=== PATIENT | female | born 1980 | race Caucasian/White ===

== ENCOUNTER 2019-02-14 12:46 | Emergency (ER) | payer OTHER ==
[2019-02-14 12:56] VITALS: BP 104/64
--- NOTE | 2019-02-14 12:58 | UC ---
Throat Pain/Nasal Angel HPI - HPI Summary HPI Summary: 38 yo female presents accompanied by her toddler son. Mom says that she developed a sore throat today. Son is also being seen and tested positive for strep. Pt is concerned that she may have strep. Has not taken anything OTC for her symptoms. Denies fever, sinus symptoms, or cough. - History of Current Complaint Stated Complaint: THROAT Time Seen by Provider: 02/14/19 12:47 Hx Obtained From: Patient Hx Last Menstrual Period: 01/12/19 Onset/Duration: Sudden Onset Severity: Mild Pain Intensity: 2 Pain Scale Used: 0-10 Numeric - Allergies/Home Medications Allergies/Adverse Reactions: Allergies Allergy/AdvReac Type Severity Reaction Status Date / Time avacado Allergy itchy Uncoded 02/14/19 13:11 watery eyes hazelnuts Allergy See Comment Uncoded 09/23/16 15:30 raw apples Allergy See Comment Uncoded 09/23/16 15:30 watermelon flavor Allergy Headache Uncoded 02/14/19 13:11 PMH/Surg Hx/FS Hx/Imm Hx - Additional Past Medical History Additional PMH: None - Surgical History Surgical History: Yes Surgery Procedure, Year, and Place: lasik surgery - Family History Known Family History: Positive: None - reviewed & noncontributory - Social History Occupation: Employed Full-time Lives: With Family Alcohol Use: None Substance Use Type: None Smoking Status (MU): Never Smoked Tobacco Review of Systems All Other Systems Reviewed And Are Negative: Yes Constitutional: Positive: Negative Skin: Positive: Negative Eyes: Positive: Negative ENT: Positive: Sore Throat Respiratory: Positive: Negative Cardiovascular: Positive: Negative Neurological: Positive: Negative Psychological: Positive: Negative Physical Exam - Summary Physical Exam Summary: GENERAL: NAD. WDWN. No pain distress. SKIN: No rashes, sores, lesions, or open wounds. HEENT: Head: AT/NC Eyes: EOM intact. Conjunctiva clear without inflammation or discharge. Ears: Hearing grossly normal. TMs intact, no bulging, erythema, or edema. Nose: Nasal mucosa pink and moist. NTTP maxillary and frontal sinus. Throat: Posterior oropharynx without exudates, erythema, or tonsillar enlargement. Uvula midline. NECK: Supple. Nontender. No lymphadenopathy. CHEST: CTAB. No r/r/w. No accessory muscle use. Breathing comfortably and in no distress. CV: RRR. Without m/r/g. Pulses intact. Cap refill <2seconds NEURO: Alert. PSYCH: Age appropriate behavior. Triage Information Reviewed: Yes Vital Signs: Initial Vital Signs Temp 99.1 F 02/14/19 12:53 Pulse 61 02/14/19 12:53 Resp 16 02/14/19 12:53 BP 104/64 02/14/19 12:53 Pulse Ox 100 02/14/19 12:53 Laboratory Tests 02/14/19 12:51 Group A Strep Rapid Negative Vital Signs Reviewed: Yes Throat Pain/Nasal Course/Dx - Course Course Of Treatment: POC strep negative. Suspect pharyngitis - advised to try conservative OTC treatment and if symptoms persist to be rechecked - Differential Dx/Diagnosis Provider Diagnosis: Pharyngitis Discharge - Sign-Out/Discharge Documenting (check all that apply): Patient Departure All imaging exams completed and their final reports reviewed: No Studies - Discharge Plan Condition: Stable Disposition: HOME Patient Education Materials: Pharyngitis (ED) Referrals: Bobo Sam MD [Primary Care Provider] - Additional Instructions: If you develop a fever, shortness of breath, chest pain, new or worsening symptoms - please call your PCP or go to the ED. Your strep test today was negative. Monitor your symptoms and try tea with honey for discomfort. IF your symptoms do not improve - please be rechecked. - Billing Disposition and Condition Condition: STABLE Disposition: Home - Attestation Statements Provider Attestation: I was available for consult. This patient was seen by the MIRYAM. The patient was not presented to , seen by or examined by ct -Maria Alejandra Keane MD
== END 2019-02-14 13:11 | disposition home or self-care (01) ==
LOC: UCEAST 12:46
DX: J02.9 Acute pharyngitis, unspecified (principal); Z91.018 Allergy to other foods
CPT/HCPCS: 87651; 99211; G0463

== ENCOUNTER 2019-04-24 13:55 | Emergency (ER) | payer OTHER ==
[2019-04-24 14:04] VITALS: BP 118/58
[2019-04-24] MEDS ORDERED: Ibuprofen TAB* 600 MG PO ONE (14:08)
--- NOTE | 2019-04-24 14:23 | UC ---
Lower Extremity/Ankle HPI - HPI Summary HPI Summary: was sailing on boat today, while moving to other side of boat she somehow slid, scraped L knee and injured L great toe. painful to walk on toe, has had no treatment thus far - History of Current Complaint Chief Complaint: UCLowerExtremity Stated Complaint: TOE INJURY Time Seen by Provider: 04/24/19 14:13 Hx Obtained From: Patient Hx Last Menstrual Period: 04/02/19 ?: No Onset/Duration: Sudden Onset Severity Initially: Moderate Severity Currently: Moderate Pain Intensity: 4 Aggravating Factor(s): Ambulation Alleviating Factor(s): Rest, Elevation Able to Bear Weight: Yes - with pain - Allergies/Home Medications Allergies/Adverse Reactions: Allergies Allergy/AdvReac Type Severity Reaction Status Date / Time avacado Allergy itchy Uncoded 04/24/19 14:04 watery eyes hazelnuts Allergy See Comment Uncoded 04/24/19 14:04 raw apples Allergy See Comment Uncoded 04/24/19 14:04 watermelon flavor Allergy Headache Uncoded 04/24/19 14:04 Home Medications: Home Medications L.acidoph,Paracasei, B.lactis [Probiotic] 1 tab PO DAILY 04/24/19 [History Confirmed 04/24/19] Loratadine [Claritin] 10 mg PO DAILY 04/24/19 [History Confirmed 04/24/19] PMH/Surg Hx/FS Hx/Imm Hx Previously Healthy: Yes - Surgical History Surgical History: Yes Surgery Procedure, Year, and Place: lasik surgery - Family History Known Family History: Positive: None - reviewed & noncontributory - Social History Occupation: Employed Full-time Lives: With Family Alcohol Use: Weekly Substance Use Type: None Smoking Status (MU): Never Smoked Tobacco - Immunization History Hx Tetanus, Diphtheria Vaccination: Yes Vaccination Up to Date: Yes Review of Systems All Other Systems Reviewed And Are Negative: Yes Constitutional: Positive: Negative Respiratory: Positive: Negative Cardiovascular: Positive: Negative Musculoskeletal: Positive: Other: - left great toe pain Neurological: Positive: Negative Psychological: Positive: Negative Is Patient Immunocompromised?: No Physical Exam Triage Information Reviewed: Yes Appearance: Well-Appearing, No Pain Distress, Well-Nourished Vital Signs: Initial Vital Signs Temp 99.1 F 04/24/19 14:00 Pulse 74 04/24/19 14:00 Resp 16 04/24/19 14:00 BP 118/58 04/24/19 14:00 Pulse Ox 100 04/24/19 14:00 Vital Signs Reviewed: Yes Respiratory Exam: Normal Cardiovascular Exam: Normal Musculoskeletal: Positive: ROM Limited @ - L great toe, Other: - distal L great toe tender, no gross deformity, no ecchymosis Neurological Exam: Normal Psychological Exam: Normal Skin: Positive: Other - superficial abrasion L knee- no bleeding Diagnostics - Radiology No standard instances Radiology Interpretation Completed By: Radiologist - Negative for fracture or dislocation. Lower Extremity Course/Dx - Differential Dx/Diagnosis Differential Diagnosis/HQI/PQRI: Contusion, Fracture (Closed), Sprain Provider Diagnosis: Strain of toe Discharge - Sign-Out/Discharge Documenting (check all that apply): Patient Departure All imaging exams completed and their final reports reviewed: Yes - Discharge Plan Condition: Good Disposition: HOME Patient Education Materials: Muscle Strain (ED) Referrals: No Primary Care Phys,NOPCP [Primary Care Provider] - Stevo Birmingham MD [Medical Doctor] - 3 Days (if no better) Additional Instructions: ice and elevate toe use post-op shoe for 1 week ibuprofen 600mg every 6 hours as needed for pain follow-up with orthopedic provider if no improvement 3-5 days - Billing Disposition and Condition Condition: GOOD Disposition: Home - Attestation Statements Provider Attestation: I was available for consult. This patient was seen by the MIRY[facility]. The patient was not presented to, seen by, or examined by me. -Gee
== END 2019-04-24 15:05 | disposition home or self-care (01) ==
LOC: UCEAST 13:55
DX: S93.502A Unspecified sprain of left great toe, initial encounter (principal); X58.XXXA Exposure to other specified factors, initial encounter; Y92.814 Boat as the place of occurrence of the external cause
CPT/HCPCS: 99212; A9270-GY; G0463

== ENCOUNTER 2019-06-04 13:50 | Emergency (ER) | payer OTHER ==
--- OUTSIDE RECORDS SUMMARY | 2019-06-04 14:23 | XMS REPORT | Continuity of Care Document ---
:1980 External Reference #:[id number] Author Name Venkat Will CNM Address [address] [place] [address] Care Team Providers Name Role Phone Shelby Rivera MD Primary Care Physician Unavailable Payers Date Identification Numbers Payment Provider Subscriber Policy Number: [id number] [employer] Ppo Joshua Menjivar PayID: [id number] [address] [place] [address] Problems Active Problems Provider Date IUD contraception Venkat Will CNM Onset: 05/12/2019 Family History Date Family Member(s) Observation Comments Father Diabetes Father Bipolar Disorder Father Cancer, Thyroid Father Gout Father Asthma Father Obesity Mother Hypertension Mother Hypercholesterolemia Mother Osteoporosis Mother Breast Cancer dx at age 65 Children 1 First Son A&W Siblings 2 First Brother Asthma First Sister Asthma Paternal Grandfather due to Unknown Causes () Paternal Grandmother due to MT () Maternal Grandfather due to Unknown Causes () Maternal Grandmother due to Stroke () Social History Type Date Description Comments Sex Unknown Education Highest Level Completed, Master's Degree Marital Status Lives With Spouse Lives With Son 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[employer] Cigarette Use Does Not Smoke Cigarettes ETOH Use Occasionally consumes alcohol Recreational Drug Use Denies Drug Use Tobacco Use Start: Unknown Patient has never smoked Smoking Status Reviewed: 05/12/19 Patient has never smoked Exercise Type/Frequency Exercises sporadically Seat Belt/Car Seat Always uses seat belt Currently Active Patient is currently sexually active Contraceptive Methods Current methods include copper T IUD STD's No STD History Allergies, Adverse Reactions, Alerts Active Allergies Reaction Severity Comments Date No Known Allergies 02/19/2016 Medications Active Medications SIG Qnty Indications Ordering Provider Date Paragard Intrauterine placed 05/12/2019 Venkat Will CNM 05/12/2019 Copper Contraceptive T380a T380a IUD Advil Unknown Multivitamin Adult Unknown Claritin Unknown History Medications No Active Medications Unknown 03/06/2016 - 09/03/2016 Medications Administered in Office Medication SIG Qnty Indications Ordering Provider Date No PT Tbco SCRN RNG DAY Johnson 04/20/2019 Injection PT SCRN Tbco Id as Non User DAY Johnson 04/20/2019 Injection Vital Signs Date Vital Result Comment 05/12/2019 2:16pm BP Systolic 104 mmHg BP Diastolic 62 mmHg Height 67 inches 5'7" Weight 133.00 lb BMI (Body Mass Index) 20.8 kg/m2 Last Menstrual Period [id number] 2 Parity 1 04/20/2019 7:56am BP Systolic 104 mmHg BP Diastolic 56 mmHg Height 67 inches 5'7" Weight 133.00 lb BMI (Body Mass Index) 20.8 kg/m2 Last Menstrual Period [id number] 2 Parity 1 10/01/2016 9:06am BP Systolic 102 mmHg BP Diastolic 60 mmHg Height 67 inches 5'7" Weight 134.00 lb BMI (Body Mass Index) 21.0 kg/m2 Last Menstrual Period [id number] 2 Parity 1 09/03/2016 2:37pm BP Systolic 112 mmHg BP Diastolic 66 mmHg Height 67 inches 5'7" Weight 133.00 lb BMI (Body Mass Index) 20.8 kg/m2 Last Menstrual Period [id number] 2 Parity 1 03/06/2016 2:14pm BP Systolic 110 mmHg BP Diastolic 68 mmHg Height 67 inches 5'7" Weight 132.00 lb BMI (Body Mass Index) 20.7 kg/m2 Last Menstrual Period [id number] 2 Parity 1 02/19/2016 12:00am BP Systolic 108 mmHg BP Diastolic 61 mmHg Body Temperature 98.3 F Heart Rate 67 /min Respiratory Rate 16 /min Height 67 inches Weight 130.00 lb Results Test Date Facility Test Result H/L Range Note Laboratory test 04/20/2019 [facility] Cytology SEE RESULT [address] [place] [address] BELOW [phone] Laboratory test 03/06/2016 [facility] HCG 0.95 mIU/mL N [address] [place] [address] [phone] Laboratory 02/19/2016 N2N/CCD Import Absolute 0 10^3/ul 0-0.2 Studies Basophils (auto) Absolute Eosinophils (auto) 0.1 10^3/ul 0-0.6 Absolute Lymphocytes (auto) 2.3 10^3/ul 1.0-4.8 Absolute Monocytes (auto) 0.4 10^3/ul 0-0.8 Absolute Neutrophils (auto) 3.6 10^3/ul 1.5-7.7 Alanine Aminotransferase (Alt/SGPT) 9 U/L 7-52 Albumin 4.0 g/dL 3.2-5.2 Albumin/Globulin Ratio 1.5 1-3 Alkaline Phosphatase 29 U/L Low 34-104 Anion Gap 6 mmol/L 2-11 Aspartate Amino Transf (Ast/Sgot) 14 U/L 13-39 BUN/Creatinine Ratio 17.9 8-20 Basophils (%) (Auto) 0.5 % 0-2 Beta HCG, Quantitative 83.38 mIU/mL Blood Urea Nitrogen 15 mg/dL 6-24 Calcium Level 8.8 mg/dL 8.6-10.3 Carbon Dioxide Level 27 mmol/L 22-32 Chloride Level 104 mmol/L 101-111 Creatinine 0.84 mg/dL 0.51-0.95 Eosinophils (%) (Auto) 1.5 % 0-6 Estimated GFR () 99.2 Estimated GFR (Non- 77.2 Globulin 2.7 g/dL 2-4 Glucose Level 109 mg/dL High 70-100 Hematocrit 38 % 35-47 Hemoglobin 12.7 g/dL 12.0-16.0 International Ratio (Anticoag Ther) 1.05 0.89-1.11 Lymphocytes (%) (Auto) 35.2 % 25-47 Mean Corpuscular Hemoglobin 30 pg 27-31 Mean Corpuscular Hemoglobin Concent 33 g/dL 31-36 Mean Corpuscular Volume 91 fL 80-97 Mean Platelet Volume 8 um3 7.4-10.4 Monocytes (%) (Auto) 7.0 % 1-9 Neutrophils (%) (Auto) 55.8 % 38-83 Nucleated RBC Absolute Count (auto) 0 10^3/ul Nucleated Red Blood Cells % 0 Platelet Count 278 10^3/ul 150-450 Potassium Level 3.2 mmol/L Low 3.5-5.0 Red Blood Count 4.22 10^6/ul 4.0-5.4 Red Cell Distribution Width 14 % 10.5-15 Sodium Level 137 mmol/L 133-145 Total Bilirubin 0.30 mg/dL 0.2-1.0 Total Protein 6.7 g/dL 6.4-8.9 White Blood Count 6.4 10^3/ul 3.5-10.8 Laboratory Studies 02/19/2016 N2N/CCD Import Urine Specific 1.008 Low 1.010-1.030 [place] Urine pH 6.0 5-9 1 SEE RESULT BELOW Name: JOSHUA MENJIVAR : [address]: Erin Coleman Acct: [id number] Unit: [id number] AGE: 38 Location: [facility] Re04/20/19 SEX: F Status: REG REF SPEC: [id number] JOSE: 04/20/[address] [facility] [address]: Erin Coleman REQ: [id number] RECD: 04/20/19 STATUS: SOUT _ ORDERED: TP IMAGE ANALYS, HPV/Thin Prep COMMENTS: [id number] Negative for Intraepithelial lesion or Malignancy Date Time Test Result Flag (u) Normal Range 04/20/19 0808 HPV RNA Negative Negative The high-risk HPV types detected by the assay include: 16, 18, 31, 33, 35, 39, 45, 51, 52, 56, 58, 59, 66, and 68. A. Ectocervical/Endocervical Specimen Adequacy: Satisfactory of evaluation Transformation zone component identified Patient Information: HPV: High risk HPV RNA testing regardless of pap results. Actual Specimen Date: 04/20/19 Last Menstrual Date: 03/31/19 Spec Date if unknown: never Signed by and Reported on: AMBER Bobby(ASC) [id number] This Pap test was evaluated with the assistance of the [facility] ([facility])Prep Test Imaging System. Due to cytologic findings at the bee raiser microscope, comprehensive manual rescreening by a Lean Process Deployment Consultant may be required. The Pap Smear is a screening test designed to aid in the detection of premalignant and malignant conditions of the uterine cervix. It is not a diagnostic procedure and should not be used as the sole means of detecting cervical cancer. Both false- positive and false- negative reports do occur. Depending on your risk status, a Pap smear should be obtained and evaluated every 1-3 years. END OF REPORT DEPARTMENT OF PATHOLOGY, [address] [place] [address] Jesús Bautista M.D. 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 8:20a ANP-C (general) (routine) w/o abn findings Office Visit 10/01/2016 [facility] Office Erin Bishop, R10.30 Lower abdominal pain, 9:20a ANP-C unspecified Office Visit 09/03/2016 [facility] Office Erin Bishop, R10.30 Lower abdominal pain, 2:40p ANP-C unspecified Office Visit 03/06/2016 [facility] Office Erin Bishop, O03.9 Complete or unsp 2:20p ANP-C spontaneous without complication Plan of Treatment Future Appointment(s):06/15/2019 8:20 am - Meli Ortez CNM at [facility]05/12/2019 - Venkat Will [id number] Encounter for insertion of intrauterine contraceptive deviceComments:IUD insertion uncomplicated, patient tolerated well.Pt given precautions to return if persistent pain or fever.She should check for strings monthly after menses. Contact us if ever unable to locate strings.Pt will return in about 4-6 wks for IUD check.All questions answered.Return for removal within 10 yrs.
[2019-06-04 14:29] VITALS: BP 97/47
--- NOTE | 2019-06-06 07:09 | UC ---
- Progress Note Progress Note: please notify pt urine culture back and show no UTI stop antibiotic recheck if still symptomatic Course/Dx - Diagnoses Provider Diagnoses: Dysuria Discharge - Sign-Out/Discharge Documenting (check all that apply): Post-Discharge Follow Up All imaging exams completed and their final reports reviewed: No Studies - Discharge Plan Condition: Good Disposition: HOME Prescriptions: Phenazopyridine TAB* [Pyridium 100 mg TAB*] 100 mg PO TID PRN #15 tab PRN Reason: urinary frequency Sulfamethox/Trimethoprim DS* [Bactrim DS 800/160 TAB*] 1 tab PO BID #6 tab Patient Education Materials: Urinary Tract Infection in Women (ED) Referrals: No Primary Care Phys,NOPCP [Primary Care Provider] - Additional Instructions: - Increase fluid intake - Pyridium as needed every 8 hours for urgency symptoms - Bactrim twice daily x 3 days - Follow up urine cultures - GO to ER with back pain, fever, chills, increased symptoms - Billing Disposition and Condition Condition: GOOD Disposition: Home
== END 2019-06-04 16:05 | disposition home or self-care (01) ==
LOC: UCEAST 13:50
DX: R30.0 Dysuria (principal)
CPT/HCPCS: 81002; 81025; 87086; 99212; G0463

== ENCOUNTER → 2019-10-19 10:23 | Day surgery (SDC) | payer OTHER ==
[~2019-10-19 10:23] MED LIST: Acetaminophen TAB* 325 MG ONE; Acetaminophen TAB* 325 MG PO ONE; Buffered Lidocaine 1% SYRIN* 1 ML/SYRINGE INTRADERM ONE; Bupivacaine 0.25% SDV* 30 ML ONE; Dexamethasone IV* 4 MG/ML 1 ML (4 MG) ONE; DiMENhydriNATE IV* 50 MG/ML VIAL IV PUSH PRN; Famotidine IV* 10 MG/ML 2 ML (20 mg) IV ONE; Famotidine IV* 10 MG/ML 2 ML (20 mg) ONE; Gabapentin CAP(*) 300 MG ONE; Gabapentin CAP(*) 300 MG PO ONE; HYDROcodone/ACETAMIN 5-325 MG* 1 TAB PO PRN; Ketorolac INJ* 30 MG/ML 1 ML VIAL ONE; Lactated Ringers 1000 ML Bag* 1,000 ML IV SCH; Lidocaine 1% INJ* 10 MG/ML 30 ML SDV ONE; Lidocaine 2% PF * 5 ML VIAL ONE; Midazolam* 1 MG/ML 2 ML VIAL (2 MG) ONE; Naloxone* 0.4 MG/ML 1 ML VIAL IV PRN; Ondansetron INJ* 2 MG/ML VIAL IV PRN; Ondansetron INJ* 2 MG/ML VIAL ONE; Propofol* 10 MG/ML 20 ML BTL ONE; ceFAZolin 2 GM PREMIX in ORs 2 GM/50 ML BAG ONE; fentaNYL* 50 MCG/ML 2 ML VIAL (100 MCG VIAL) IV PRN; fentaNYL* 50 MCG/ML 2 ML VIAL (100 MCG VIAL) ONE
--- NOTE | 2019-10-19 14:02 | OP ---
Operative Report - Blank - Operative Report Date of Operation: 10/19/19 Note: PATIENT: Anastacia Menjivar DATE OF : 1980 DATE OF SURGERY: 10/19/2019 SURGEON: Shahab Guerrero MD GRANITE CUTTER: NIKOLE Wong, whos assistance was necessary for positioning, retraction, help with instrumentation, and closure. ANESTHESIOLOGIST: Dr. Jj PREOPERATIVE DIAGNOSIS: Right posterior heel foreign body POSTOPERATIVE DIAGNOSIS: Right posterior heel foreign body OPERATION: Right posterior heel excision of foreign body ANESTHESIA: MAC IMPLANTS: none TOURNIQUET TIME: Less than 30 min. with an ankle Esmarch tourniquet. SPECIMENS: none ESTIMATED BLOOD LOSS: minimal COMPLICATIONS: none STATUS: Stable from the operating room to the recovery room and then home INDICATIONS FOR PROCEDURE: Anastacia has had persistent pain and swelling at her right posterior heel since sustaining a laceration with a tile. She has tried nonoperative treatment without improvement. Both operative and non-operative treatment alternatives were reviewed. Further, the nature and risks of surgery were reviewed in careful detail. Our discussions regarding the risks of surgery included, but were not limited to, infection, wound problems, nerve injury, neuroma, RSD, persistent symptoms, blood clot, need for further surgery, failure of the surgery, and even the remote chance of catastrophic complication. DESCRIPTION OF PROCEDURE: The patient was seen in the preoperative holding unit and informed written consent was obtained. The appropriate extremity was marked. The patient was then brought to the operating room and carefully positioned on the operating room table. Anesthesia was induced. All bony prominences were padded with great care. A chlorhexidine based pre-scrub was performed followed by a chloraprep prep and drape in standard sterile fashion. A surgical safety pause was then conducted in which we confirmed the appropriate patient, extremity, planned procedure, availability of equipment, indication and administration of prophylactic antibiotics, and DVT prophylaxis in the form of a compression boot on the non-surgical extremity. I began with an Esmarch exsanguination of the limb and an placement of an ankle Esmarch tourniquet. I made a longitudinal ellipsoid incision at the right posterior heel to remove the hypertrophied scar from the laceration. There was extensive scar tissue deep to this, which was excised sharply with a 15 blade scalpel. A small piece of tile was then excised. Any remaining scar tissue was then excised. The wound was then copiously irrigated and closed in a layered fashion utilizing 3-0 Monocryl and 3-0 nylon. A sterile dressing was then applied. The patient was then awakened from anesthesia and transferred to the recovery room in stable condition. There were no complications. All needle and sponge counts were correct at the end of the case. ATTESTATION: I attest I was present and scrubbed and performed the entire procedure myself. POSTOPERATIVE PLAN: She'll follow up in 2 weeks for likely suture removal.
[2019-10-19 15:33] VITALS: BP 112/56
== END | disposition home or self-care (01) ==
LOC: OR 10:23
PROVIDERS: ATTEND Orthopaedic Surgery
DX: S91.341A Puncture wound with foreign body, right foot, initial encounter (principal); W20.8XXA Other cause of strike by thrown, projected or falling object, initial encounter; Y92.002 Bathroom of unspecified non-institutional (private) residence as the place of occurrence of the external cause
CPT/HCPCS: 81025; A9270-GY; J0690; J1100; J1885; J2250; J2405; J2704; J3010; J3490